=== PATIENT | female | born 1955 | race American Indian/Alaskan Native ===

== ENCOUNTER 2017-07-04 08:07 | Outpatient (CLI) | payer OTHER ==
--- NOTE | 2017-07-04 08:58 | XRay Report ---
XRAY BILATERAL KNEE THREE VIEWS EACH: 07/04/17 08:07:00 CLINICAL: Knee pain FINDINGS: Right: Mild osteopenia. No fracture or dislocation. Narrowing of the medial joint space with small osteophytes. Patellofemoral joint arthritis with small osteophytes. However the medial and lateral joint space is preserved. No joint effusion. Normal soft tissues. Left: Mild osteopenia. No fracture or dislocation. Narrowing of the medial joint space with large osteophytes. The lateral joint space is normal. Patellofemoral joint arthritis with narrowing of the medial joint space and small superior and inferior osteophytes. No joint effusion. Normal soft tissues. 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
== END 2017-07-04 08:08 | disposition home or self-care (01) ==
LOC: SPVIMAG 08:07
PROVIDERS: ATTEND Orthopaedic Surgery
DX: M17.0 Bilateral primary osteoarthritis of knee (principal)